=== PATIENT | female | born 1970 | race Caucasian/White ===

== ENCOUNTER → 2017-08-24 | Outpatient (CLI) | payer OTHER ==
[~2017-08-24] MED LIST: AZIT250 PO; CEPH500 PO; CYCL10 PO; HYDACE5 PO; HYDACE5325 PO; IBUP800 PO; PRED10 PO; RXCYCL10 PO; RXHYDACE PO; SULTRIDS PO
[2017-08-29 11:44] LABS: HPV Genotype 16 Not Detected (NOTDET); HPV Genotype 18 Not Detected (NOTDET)
[2017-09-03 14:06] LABS: HPV High Risk Other Not Detected (NOTDET)
== END ==
LOC: LAB 14:06
PROVIDERS: Nurse Practitioner Family
DX: Z01.419 Encounter for gynecological examination (general) (routine) without abnormal findings (principal)
CPT/HCPCS: 87624; G0145